=== PATIENT | female | born 1975 | race Asian ===

== ENCOUNTER 2017-08-10 10:43 | Emergency (ER) | payer OTHER ==
[~2017-08-10] VITALS: Ht 162.6 cm; Wt 73.0 kg
[2017-08-10 10:50] VITALS: Ht 162.6 cm; Wt 73.0 kg
[2017-08-10 12:53] VITALS: BP 127/85
== END 2017-08-10 12:53 | disposition home or self-care (01) ==
LOC: ED 10:43
DX: R09.89 Other specified symptoms and signs involving the circulatory and respiratory systems (principal); I10 Essential (primary) hypertension; E78.00 Pure hypercholesterolemia, unspecified